=== PATIENT | female | born 1985 | race Caucasian/White ===

== ENCOUNTER → 2018-09-26 | Outpatient (CLI) | payer OTHER ==
[~2018-09-26] MED LIST: OXYC1TAB23 PO; PRENTAB55 PO
[2018-09-26 13:23] LABS: GLUCOSE CHALLENGE TEST 1 HOUR 148 MG/DL (LESS THAN 140)
[2018-09-26 13:34] LABS: HEMATOCRIT 34.5 % (36.0-47.0); MEAN CORPUSCULAR HEMOGLOBIN 30.4 pg (27.0-33.0); MEAN CORPUSCULAR HGB CONC 31.9 g/dl (32.0-36.5); MEAN CORPUSCULAR VOLUME 95.3 fl (80.0-96.0); PLATELET COUNT, AUTOMATED 211 10^3/uL (150-450); RED BLOOD COUNT 3.62 10^6/uL (4.00-5.40); WHITE BLOOD COUNT 9.8 10^3/uL (4.0-10.0)
[2018-09-26 13:54] LABS: RUBELLA IgG QUALITATIVE IMMUNE (IMMUNE)
== END ==
LOC: M SMT 09:16
PROVIDERS: ATTEND Obstetrics & Gynecology
DX: Z34.83 Encounter for supervision of other normal pregnancy, third trimester (principal); Z3A.00 Weeks of gestation of pregnancy not specified

== ENCOUNTER → 2018-10-12 | Outpatient (CLI) | payer OTHER | LOC: M LAB 07:48 | PROVIDERS: ATTEND Obstetrics & Gynecology | DX: O34.219 Maternal care for unspecified type scar from previous cesarean delivery (principal); Z3A.00 Weeks of gestation of pregnancy not specified ==

== ENCOUNTER → 2018-10-30 | Outpatient (REF) | payer OTHER ==
[~2018-10-30] MED LIST changes: -OXYC1TAB23 PO
== END ==
LOC: M LAB REF 17:07
PROVIDERS: ATTEND Obstetrics & Gynecology
DX: Z34.83 Encounter for supervision of other normal pregnancy, third trimester (principal); Z3A.00 Weeks of gestation of pregnancy not specified

== ENCOUNTER 2018-11-19 04:48 | Inpatient (IN) | payer OTHER ==
[~2018-11-19] VITALS: Ht 167.6 cm; Wt 123.3 kg
[2018-11-19] MEDS ORDERED: BICITRA 30ML SOLN UDC PO ONE (05:15)
[2018-11-19] MEDS ORDERED: ceFAZolin SOD 2 GM in IV 1 EA IV ONE (05:15)
[2018-11-19] MEDS ORDERED: LR 1,000 ML IV SCH (05:15)
[2018-11-19] MEDS ORDERED: LR 1,000 ML IV ONE (05:15)
[2018-11-19 06:39] LABS: HEMATOCRIT 37.7 % (36.0-47.0); HEMOGLOBIN 12.3 g/dl (12.0-15.5); MEAN CORPUSCULAR HEMOGLOBIN 29.9 pg (27.0-33.0); MEAN CORPUSCULAR HGB CONC 32.6 g/dl (32.0-36.5); MEAN CORPUSCULAR VOLUME 91.7 fl (80.0-96.0); PLATELET COUNT, AUTOMATED 209 10^3/uL (150-450); RED BLOOD COUNT 4.11 10^6/uL (4.00-5.40); WHITE BLOOD COUNT 11.1 10^3/uL (4.0-10.0)
[2018-11-19] MEDS ORDERED: MORPHINE PRES-FREE INJ 10 MG/10 ML VIAL (J2274) As Ordered ONE (07:13)
[2018-11-19] MEDS ORDERED: OXYTOCIN INJ 10 UNITS/ML VIAL (J2590) As Ordered ONE ×2 (07:14→08:16)
[2018-11-19] MEDS ORDERED: NALOXONE INJ 0.4 MG/1 ML VIAL (J2310) IV PRN ×4 (07:45→12:00)
[2018-11-19] MEDS ORDERED: METOCLOPRAMIDE INJ 10MG/2ML VIAL (J2765) IV PRN ×2 (07:45→12:00)
[2018-11-19] MEDS ORDERED: ONDANSETRON 4MG/2ML VIAL (J2405) IV PRN ×4 (07:45→12:00)
[2018-11-19] MEDS ORDERED: diphenhydrAMINE INJ 50MG/ML VIAL (J1200) IV PRN ×2 (07:45→12:00)
[2018-11-19] MEDS ORDERED: NALBUPHINE HCL 10 MG/ML AMP (J2300) IV PRN ×3 (07:45→12:00)
[2018-11-19] MEDS ORDERED: PHENYLephrine HCL 500 MCG/5 ML (100MCG/ML) SYRINGE (J2370) As Ordered ONE (07:52)
[2018-11-19] MEDS ORDERED: METOCLOPRAMIDE INJ 10MG/2ML VIAL (J2765) As Ordered ONE (07:53)
[2018-11-19] MEDS ORDERED: ONDANSETRON 4MG/2ML VIAL (J2405) As Ordered ONE (08:19)
[2018-11-19] MEDS ORDERED: KETOROLAC 60 MG/2 ML VIAL (J1885) As Ordered ONE (08:19)
[2018-11-19] MEDS: PRENATAL VITAMINS CHEWABLE TABLET PO SCH (09:00)
[2018-11-19] MEDS: DOCUSATE SODIUM 100 MG CAP PO SCH ×2 (09:00→20:21)
[2018-11-19] MEDS ORDERED: OXYC1TAB23 PO (09:09)
[2018-11-19] MEDS ORDERED: OXYTOCIN 30 UNITS IN 0.9% NaCl 500ML IV BAG (J2590) As Ordered ONE (09:26)
[2018-11-19] MEDS ORDERED: NALBUPHINE HCL 10 MG/ML AMP (J2300) As Ordered ONE (09:53)
[2018-11-19] MEDS ORDERED: MEASLES,MUMPS,RUBELLA VACCINE INJ (MMR-II) (90707) SC SCH (10:00)
[2018-11-19] MEDS ORDERED: fentaNYL 100 MCG/2 ML INJECTION (J3010) IV PRN (10:00)
[2018-11-19] MEDS ORDERED: PROMETHAZINE 25 MG TAB PO PRN (10:00)
[2018-11-19] MEDS ORDERED: OXYTOCIN DRIP 30 UNITS in IV 1 EA IV SCH (10:00)
[2018-11-19] MEDS ORDERED: HYDROMORPHONE HCL 0.5 MG/ 0.5 ML SYRINGE (J1170 PER 1) IV PRN (10:00)
[2018-11-19] MEDS ORDERED: RHOGAM 300 MCG (1500 IU) INJ (J2790) IM SCH (10:00)
[2018-11-19] MEDS ORDERED: MEPERIDINE INJ 25 MG/ML VIAL (J2175) IV PRN (10:00)
[2018-11-19] MEDS ORDERED: PERCOCET 5MG/325MG TAB PO PRN ×2 (10:00)
[2018-11-19] MEDS: LR 1,000 ML IV SCH ×2 (10:12→18:06)
[2018-11-19 10:50] VITALS: BP 114/65
[2018-11-19] MEDS ORDERED: ACETAMINOPHEN 500 MG TAB PO PRN (11:00)
[2018-11-19 11:20] VITALS: BP 101/57
[2018-11-19 12:20] VITALS: BP 110/57
[2018-11-19] MEDS ORDERED: ADACEL/BOOSTRIX VACCINE (DIPHTH/PERTUSS/ACELL/TETANUS)0.5ML SYR (90715) IM ONE (13:00)
[2018-11-19] MEDS: PERCOCET 5MG/325MG TAB PO PRN ×2 (13:56→19:54)
[2018-11-19] MEDS: KETOROLAC 30 MG/ML VIAL (J1885) IV SCH ×2 (14:43→20:33)
[2018-11-19 18:00] VITALS: BP 127/64
[2018-11-19 21:50] VITALS: BP 118/58
[2018-11-20] VITALS (7 sets, daily range): BP systolic 107–135; BP diastolic 58–68
[2018-11-20] MEDS: KETOROLAC 30 MG/ML VIAL (J1885) IV SCH (02:47)
--- NOTE | 2018-11-20 06:33 | IPNPDOC ---
Progress Note Date of Service: Nov 20, 2018 Day#: 1 Progress Note SUBJECT: She has been ambulating, voiding spontaneously without issue and tole rating regular diet. Reports pain is under control. Denies nausea currently. OBJECTIVE: VITAL SIGNS: Within normal limits, afebrile. Alert and oriented times three. Breath sounds clear to auscultation. Heart rate: Regular rate and rhythm, no murmurs, rubs or gallops. Abdomen: Fundus firm at U. Dressing over incision is intact. Minimal lochia. Lower extremities: ASSESSMENT: Day 1 postoperative PLAN: 1.Continue with supportive nursing care. 2. Anticipate discharge to home tomorrow. VS, I&O, 24H, Fishbone Vital Signs/I&O Vital Signs Date Time Temp Pulse Resp B/P (MAP) Pulse Ox O2 Delivery O2 Flow Rate FiO2 11/20/18 06:00 97.6 90 18 108/68 (81) 98 I&O- Last 24 Hours up to 6 AM 11/20/18 06:00 Intake Total 3930 ml Output Total 1900 ml Balance 2030 ml BLANCO SAMUEL CNM Nov 20, 2018 06:33
[2018-11-20 07:39] LABS: HEMATOCRIT 29.7 % (36.0-47.0); MEAN CORPUSCULAR HEMOGLOBIN 30.9 pg (27.0-33.0); MEAN CORPUSCULAR HGB CONC 33.3 g/dl (32.0-36.5); MEAN CORPUSCULAR VOLUME 92.8 fl (80.0-96.0); PLATELET COUNT, AUTOMATED 178 10^3/uL (150-450)
[2018-11-20 07:45] LABS: HEMOGLOBIN 9.9 g/dl (12.0-15.5)
[2018-11-20] MEDS: PRENATAL VITAMINS CHEWABLE TABLET PO SCH (08:43)
[2018-11-20] MEDS: DOCUSATE SODIUM 100 MG CAP PO SCH ×2 (08:43→21:00)
[2018-11-20] MEDS: PERCOCET 5MG/325MG TAB PO PRN ×3 (08:44→19:30)
[2018-11-20] MEDS: IBUPROFEN 800 MG TAB PO SCH ×2 (10:37→19:04)
[2018-11-21 02:00] VITALS: BP 117/58
[2018-11-21] MEDS: IBUPROFEN 800 MG TAB PO SCH ×2 (02:35→10:42)
[2018-11-21] MEDS: PERCOCET 5MG/325MG TAB PO PRN ×2 (03:16→08:50)
[2018-11-21 05:42] VITALS: BP 119/69
[2018-11-21] MEDS: PRENATAL VITAMINS CHEWABLE TABLET PO SCH (08:50)
[2018-11-21] MEDS: DOCUSATE SODIUM 100 MG CAP PO SCH (08:50)
[2018-11-21] MEDS ORDERED: ADACEL/BOOSTRIX VACCINE (DIPHTH/PERTUSS/ACELL/TETANUS)0.5ML SYR (90715) IM ONE (09:00)
== END 2018-11-21 11:20 | disposition home or self-care (01) | DRG 773 ==
LOC: M LDI 04:48 → M OBS 10:45
PROVIDERS: ADMIT Obstetrics & Gynecology; ATTEND Obstetrics & Gynecology
PROC: 10D00Z1 Extraction of Products of Conception, Low, Open Approach (ICD-10-PCS; principal; 2018-11-19 09:30)
DX: O34.211 Maternal care for low transverse scar from previous cesarean delivery (principal); Z3A.39 39 weeks gestation of pregnancy; Z37.0 Single live birth

== ENCOUNTER → 2019-03-28 | Outpatient (REF) | payer OTHER ==
[~2019-03-28] MED LIST changes: +OXYC1TAB23 PO
== END ==
LOC: M LAB REF 16:39
PROVIDERS: ATTEND Physician Assistant
DX: D23.4 Other benign neoplasm of skin of scalp and neck (principal)